=== PATIENT | female | born 1990 | race Caucasian/White ===

== ENCOUNTER 2024-07-27 19:10 | Emergency (ER) | payer SELFPAY ==
[2024-07-27 19:12] VITALS: BMI 34.0
[2024-07-27 19:58] VITALS: BP 157/99; PULSE 87; RESP 24; TEMP 37.1; O2SAT 100
--- NOTE | 2024-07-27 20:00 | XR_ITS ---
Examination: PA lateral chest 2 views Technique: Upright PA lateral chest 2 views Exam date and time: July 27 2024.17 hours Indications: Shortness of breath today. Findings: Prominent pneumonia in the right base, right middle lobe and anterior segment right upper lobe Left lung clear Normal heart size Impression: Prominent right lung pneumonia
--- NOTE | 2024-07-27 20:00 | EKG_ITS ---
[facility] Test Date: 2024-07-27 Pat Name: DIAZ TORRES Department: Room: - Gender: Female [employer]: : 1990 Requested By: Reagan Rivera Order Number: [id number] Reading MD: Reagan Rivera Measurements Intervals Hanna Rate: 78 P: 63 TN: 153 QRS: 42 QRSD: 86 T: 41 QT: 351 QTc: 400 Interpretive Statements SINUS RHYTHM No previous ECG available for comparison /store/S0/[id number]/ecg/[id number].pdf
--- NOTE | 2024-07-27 20:01 | PD.EDRME ---
Rapid Medical Screening Exam RME Arrival date/time: 07/27/24 19:10 33 year old female present to Ed for c/o sob for 1 day I have greeted and performed a focused initial assessment of this patient. A comprehensive ED assessment and evaluation of the patient, analysis of all test results, and completion of the medical decision making process will be conducted by additional ED providers. Chief Complaint: Shortness of Breath/Dyspnea Time Seen by Provider: 07/27/24 19:34 Vital signs: Vital Signs Temperature 98.7 F 07/27/24 19:58 Pulse Rate 87 07/27/24 19:58 Respiratory Rate 24 H 07/27/24 19:58 Blood Pressure 157/99 H 07/27/24 19:58 Pulse Oximetry (%) 100 07/27/24 19:58 Oxygen Delivery Method Room Air 07/27/24 19:58
[2024-07-27 20:40] LABS: Basophils % (Auto) 0 % (0-2.5); Eosinophils # (Auto) 0.1 Thou/mm3 (0.0-0.5); Eosinophils % (Auto) 1 % (0-10); Hematocrit 38.9 % (36.0-46.0); Immature Granulocytes % (Auto) 0 % (0-0); Immature Granulocytes Auto 0.02 Thou/mm3 (0.00-0.00); Lymphocytes # (Auto) 1.5 Thou/mm3 (1.0-4.8); Lymphocytes % (Auto) 17 % (10-50); Mean Corpuscular HGB Conc 33.4 g/dl (31.0-37.0); Mean Corpuscular Hemoglobin 28.6 pg (25.0-35.0); Mean Corpuscular Volume 86 fL (80-100); Monocytes # (Auto) 1.1 Thou/mm3 (0.0-0.8); Monocytes % (Auto) 12 % (0-12); Neutrophils # (Auto) 6.1 Thou/mm3 (1.8-7.7); Neutrophils % (Auto) 69 % (37-80); Nucleated Red Blood Cell % 0 /100 WBC (0); Platelet Count 258 Thou/mm3 (140-440); RDW Standard Deviation 43.6 fL (36.4-46.3); Red Blood Count 4.54 Miln/mm3 (4.00-5.20); White Blood Count 8.8 Thou/mm3 (3.6-11.0)
[2024-07-27 21:02] LABS: D-Dimer < 250 ng/mL (<600)
[2024-07-27 21:07] LABS: Alanine Aminotransferase 30 U/L (10-49); Albumin, Serum 4.5 gm/dL (3.5-5.0); Albumin/Globulin Ratio 1.4 (1.2-2.2); Alkaline Phosphatase 84 U/L (46-116); Anion Gap 9 (7-16); Aspartate Amino Transferase 29 U/L (0-34); BUN/Creatinine Ratio 12 Ratio (12-20); Bilirubin,Total 0.2 mg/dL (0.3-1.2); Blood Urea Nitrogen 11 mg/dL (9-23); Calcium 9.9 mg/dL (8.3-10.6); Calcium (Corrected) 9.9 mg/dL (8.5-10.1); Carbon Dioxide 23.8 mMol/L (20.0-31.0); Chloride 107 mMol/L (98-107); Creatinine (Component) 0.9 mg/dL (0.6-1.3); Estimated Creatinine Clearance 114.3 mL/min (>60); Globulin 3.2 gm/dL (2.3-3.5); Glucose 99 mg/dL (74-106); Lipase 31 U/L (12-53); Osmolality,Calculated 278 (275-295); Sodium 140 mMol/L (136-145); Total Protein 7.7 gm/dL (5.7-8.2); Troponin I < 0.002 ng/mL (0.0-0.045); eGFR > 60 See Note
[2024-07-27 21:10] LABS: HCG,Qualitative Serum Negative
--- NOTE | 2024-07-27 21:17 | EDNOTE_ITS ---
ED SOB =RME/HPI General Chief Complaint: Shortness of Breath/Dyspnea Stated Complaint: SOB Time Seen by Provider: 07/27/24 19:34 Arrival date/time: 07/27/24 19:10 33 year old female present to emergency room with c/o of shortness of breath for 1 day. recent drove down from [place]. LOCATION: Chest SEVERITY: Symptoms are described as being severe with limitations on activities of daily living CONTEXT: The patient is unable to identify any inciting events. DURATION/TIMING: The symptoms started approximately 1 day ago and have been constant since and have been progressive getting worse. ASSOCIATED SYMPTOMS: The patient is unable to identify any other associated symptoms. MODIFYING FACTORS: The patient is unable to identify any alleviating or aggravating symptoms. PERTINENT ROS: no fever, no pleuritic pain, no ripping or tearing sensations, denies any lower extremity edema and no unilateral swelling, no nausea,vomiting, diarrhea, no dizziness/headache no rash no loc/syncope episode no abd/back pain no dsyuria,urgency,frequency REVIEW OF SYSTEMS: See History of Present Illness - with the exception of those mentioned in the history of present illness, all other systems reviewed and reported as negative GENERAL: In general the patient is awake, interactive, [facility] HEAD/EYES/EARS/NOSE/THROAT: normo-cephalic, atraumatic, mucus membranes are moist, anicteric, palpebral conjunctiva is pink, trachea is midline. CARDIOVASCULAR: regular rate and regular rhythm, no murmurs, heart sounds are not distant, strong pulses in all four extremities that are equal and symmetric bilateral upper and lower extremities, normal capillary refill. CHEST/PULMONARY: normal chest rise and fall, good air movement, clear to auscultation bilaterally, normal inspiratory to expiratory ratios without evidence of respiratory distress. NECK: No midline/Paraspinal tenderness, no step off ROM/Strenght intact No Kernig and bruzinski sign. No trauma ABDOMEN: soft, not tender, no masses appreciated BACK: normal range of motion without pain. NEUROLOGICAL: cranio-facial features are symmetric, moves all four extremities equally without obvious limitations or weakness. EXTREMITY: no tenderness to palpation over the long bones or large joints of the bilateral upper and lower extremities, no joint swelling, no joint erythema, no signs of trauma, no unilateral leg swelling and no peripheral edema. SKIN: warm, dry, well-perfused, no jaundice, no rash, no telangiectasias or pe techia. PSYCH: calm, cooperative, no evidence of psychosis or agitation RME / HPI RME / HPI Narrative: 07/27/24 19:10 33 year old female present to Ed for c/o sob for 1 day I have greeted and performed a focused initial assessment of this patient. A comprehensive ED assessment and evaluation of the patient, analysis of all test results, and completion of the medical decision making process will be conducted by additional ED providers. Related Data Previous Rx's ?Medication ?Instructions ?Recorded albuterol sulfate 90 mcg/actuation 1 inh inhalation QID PRN shortness 07/27/24 aerosol inhaler of breath or wheezing #8.5 grams amoxicillin 875 mg-potassium 1 tab PO Q12H #14 tabs 07/27/24 clavulanate 125 mg tablet doxycycline hyclate 100 mg capsule 100 mg PO BID #14 caps 07/27/24 methylprednisolone 4 mg tablets in 4 mg PO .as directed #21 tabs 07/27/24 a dose pack (Medrol (Dimas)) Allergies Allergy/AdvReac Type Severity Reaction Status Date / Time azithromycin Allergy Rash Verified 07/27/24 19:12 diphenhydramine Allergy Anxiety Verified 07/27/24 19:12 [From Benadryl] Sulfa (Sulfonamide Allergy Rash Verified 07/27/24 19:12 Antibiotics) Course Course Course Narrative: Patient presenting with cough and fever.? VS were reviewed and showed wnl .? ?Lung exam noted to have wheezig .? Obtained and reviewed CXR, which showed + right side pna ?At this time, it is felt that the most likely explanation for the patient's symptoms is pneumonia.? I also considered URI, bronchitis, pneumonia, pneumothorax, PE, but this appears less likely considering the data gathered thus far.? Patient was provided first dose of antibiotics and steroid while in the ED.? ? Supportive treatment options were discussed.? Patient to follow up with PCP closely.?? Plan:? Prescribed augmentin 875mg bid 7 days, doxy 100mg bid for 7 days, medro dose dimas, inhaler Advised Pt on supportive measures, including smoking cessation and avoidance of second-hand smoke, OTC acetaminophen or ibuprofen for fever and body aches, advancement of fluids as tolerated, rest, and frequent hand-washing w/ soap and water. Instructed Pt to monitor for shaking chills or T>100.5degF, persistent cough >7- 10d, hemoptysis, delirium or confusion, cyanosis, and respiratory distress.? Instructed Pt to f/up w/ PCP or ETC should Sx worsen or not improve.? Quality Measures none Orders Category Date Time Status EKG (ED ONLY) *Do not use* NOW Care 07/27/24 20:00 Completed EKG (ED Only) Stat Exams 07/27/24 20:00 Draft XR chest 2V Stat Exams 07/27/24 20:00 Completed CBC Stat Lab 07/27/24 20:18 Completed CMP [Comprehensive Metabolic Panel] Stat Lab 07/27/24 20:18 Completed D-Dimer Stat Lab 07/27/24 20:18 Completed HCG,Qualitative Serum Stat Lab 07/27/24 20:18 Completed Lipase Stat Lab 07/27/24 20:18 Completed Troponin I Stat Lab 07/27/24 20:18 Completed Albuterol/Ipratr Rt Jamilah [Duoneb Rt Jamilah] Med 07/27/24 21:27 Discontinued 3 ml INH X1 ONE Amoxicillin/Pot Clav 875 [Augmentin 875] Med 07/27/24 21:18 Discontinued 1 tab PO X1 ONE Doxycycline [Vibramycin] Med 07/27/24 21:18 Discontinued 100 mg PO X1 ONE predniSONE Med 07/27/24 21:18 Discontinued 60 mg PO X1 ONE Vital Signs Vital signs: Vital Signs Temperature 98.7 F 07/27/24 19:58 Pulse Rate 87 07/27/24 19:58 Respiratory Rate 24 H 07/27/24 19:58 Blood Pressure 157/99 H 07/27/24 19:58 Pulse Oximetry (%) 100 07/27/24 19:58 Oxygen Delivery Method Room Air 07/27/24 19:58 Procedures -ED EKG Interpretation #1: Date of EK07/27/24 Rate: 76 Interpretation: Reviewed by me EKG Impression: Normal sinus rhythm, No acute ST-T changes, No ectopy, No ischemic changes, Normal QRS, Normal intervals and Normal axis Shortness of Breath / Dyspnea Patient data External records reviewed:: None Clinical information provided by:: patient Social determinants that could affect healthcare access:: none Patient has the following chronic illnesses:: none How is presenting disease/condition affected by chronic disease/condition?: no chronic disease Evaluation data The following diagnostics were reviewed and interpreted by me:: lab results, radiology exam(s) and EKG tracing(s) Lab and/or radiology exams considered but not ordered:: none Interpretation Summary: basic labs wnl ddimer wnl trop wnl heart score: 0 cxr: right side pna Medications / Prescriptions Medications or Prescriptions considered but not ordered:: none Medication administrations:: Medication Administration History Discontinued Medications Albuterol/Ipratropium (Albuterol/Ipratropium (Duoneb) Rt Jamilah 3 Ml Nebu) 3 ml INH X1 ONE Stop: 07/27/24 21:28 Last Admin: 07/27/24 21:44 Dose: 3 ml Documented By: BRIAN Amoxicillin/Clavulanate Potassium (Amoxicillin/Pot Clav 875 Tablet) 1 tab PO X1 ONE Stop: 07/27/24 21:19 Last Admin: 07/27/24 21:34 Dose: 1 tab Documented By: JOHANA Doxycycline Hyclate (Doxycycline 100 Mg Tablet) 100 mg PO X1 ONE Stop: 07/27/24 21:19 Last Admin: 07/27/24 21:34 Dose: 100 mg Documented By: JOHANA Prednisone (Prednisone 20 Mg Tablet) 60 mg PO X1 ONE Stop: 07/27/24 21:19 Last Admin: 07/27/24 21:34 Dose: 60 mg Documented By: JOHANA as stated above Consultations Consultation(s) initiated? (list below): No Diagnosis Shortness of Breath Differential Diagnosis: acute exacerbation of chronic obstructive airways disease, congestive heart failure, community acquired pneumonia, asthma with exacerbation, pulmonary embolism and other (anemia ) Most likely diagnosis given after review of the tests above:: pna Admission Indicated Admission indicated?: not indicated Admission Request Was there a request for admission?: No Disposition Plan Disposition Plan: Discharge Discharge Attestation Discharge Attestation: The patient and all family members were given an opportunity to ask questions and understood the discharge instructions. Discharge instructions specifically effects, indications for sooner follow up or return to the emergency department, and the expected course of current diagnosis. Patient condition: Stable Discharge Plan Plan Patient Disposition: HOME (Self Care) Health Concerns: Follow with PMD as directed Take tylenol or motrin as need Return to ED if sx worsen Prescriptions/Referrals Prescriptions/Med Rec: New amoxicillin-pot clavulanate 875-125 mg tablet 1 tab PO Q12H Qty: 14 0RF doxycycline hyclate 100 mg capsule 100 mg PO BID Qty: 14 0RF methylprednisolone [Medrol (Dimas)] 4 mg tablets,dose pack 4 mg PO .as directed Qty: 21 0RF albuterol sulfate 90 mcg/actuation HFA aerosol inhaler 1 inh inhalation QID PRN (Reason: shortness of breath or wheezing) Qty: 8.5 0RF Problem List Clinical Impression: Community acquired pneumonia Patient/Caregiver Discharge Instructions Education Materials: ED Pneumonia (Adult) Print Language: Tajik Stand Alone Forms: [employer] Award Info., Patient Portal Info Letter
[2024-07-27] MEDS: AMOXICILLIN/POT CLAV 875 TABLET 1 TAB PO (21:34)
[2024-07-27] MEDS: DOXYCYCLINE 100 MG TABLET PO (21:34)
[2024-07-27] MEDS: predniSONE 20 MG TABLET 60 MG PO (21:34)
[2024-07-27] MEDS: ALBUTEROL/IPRATROPIUM (Duoneb) RT SOL 3 ML NEBU INH (21:44)
[2024-07-27 21:46] VITALS: PULSE 84; RESP 22; O2SAT 100
== END 2024-07-27 22:05 | disposition home or self-care (01) ==
PROVIDERS: Physician Assistant; Emergency Provider Emergency Medicine
DX: J18.9 Pneumonia, unspecified organism (principal)
CPT/HCPCS: 36415; 71046; 80053; 83690; 84484; 84703; 85025; 85379; 93005; 94640; 99283; A9270; J7512